=== PATIENT | female | born 1980 | race Caucasian/White ===

== ENCOUNTER 2016-08-15 15:49 | Outpatient (CLI) | payer OTHER ==
[~2016-08-15] VITALS: Ht 160 cm; Wt 66.7 kg
[~2016-08-15 15:49] MED LIST: ACET500C5 PO
[2016-08-15 15:57] VITALS: BP 119/58; RESP 16; Ht 160 cm; Wt 66.7 kg
--- NOTE | 2016-08-15 17:03 | RADRPT ---
PROCEDURE: US OB. CLINICAL INDICATION: Leaking amniotic fluid. TECHNIQUE: Multiple sonographic images of the uterus were obtained. In addition, transva ginal sonography of the cervix was performed. The images were reviewed on a PACS workstation. COMPARISON: No prior studies are available for comparison. FINDINGS: There is a single live intrauterine gestation. heart rate is 154 beats per minute. Measurements were made in order to determine age. The results are as follows: BPD = 4.97 cm. HC = 19.05 cm. AC = 16.11 cm. FL = 3.53 cm. Estimated weight is 406 +/- 61 grams. LMP growth percentile is 47 %. Menstrual age by ultrasound dates is 21 weeks 1 day. The estimated date of delivery is 12/25/2016. Maximum vertical pocket of amniotic fluid is 5.7 cm. Transvaginal cervical length is 3.9 cm. Position is cephalic and placenta is anterior grade 1. There is no evidence for an abruption or plac enta previa. IMPRESSION: 1. Single live intrauterine gestation of 21 weeks 1 day menstrual age by ultrasound dates. 2. The estimated date of delivery is 12/25/2016. 3. Maximum vertical pocket of amniotic fluid is 5.7 cm. 4. Cervical length is 3.9 cm. RPTAT: QQ .Sarmad Costa MD, Date Time Electronically viewed and signed by .Sarmad Costa MD, on 08/15/2016 17:02 .R/
--- NOTE | 2016-08-15 17:40 | HP ---
Date/Time of Note Date/Time of Note DATE: 08/15/16 TIME: 17:38 OB - History Hx of Present Free Text/Dictation 35 yo @20+wks GA with Twin pregancy with cc of leaking : 3 Para: 1 Care: Good Care Obstetrical Complications: None Medical Complications: None Past Family/Social History * Past Medical, Surgical, Family and Obstetric Histories reviewed from chart. OB Admission Exam Vital Signs Vital Signs Vital Signs Date Time Temp Pulse Resp B/P Pulse Ox O2 Delivery O2 Flow Rate FiO2 08/15/16 15:57 98.9 16 119/58 Physical Exam Abdomen: WNL Extremities: Normal Membranes: Ruptured OB Assessment/Plan Reason for admission: observation Plan: Expectant Management Other plan: Prenatalogy consult Neonatalogy consult IV hydration Patient is considering to leave the Hospital AMA due to personal problems .risks extensively discussed with patient SAPPHIRE CABRERA M.D. Aug 15, 2016 17:40
== END 2016-08-15 17:45 | disposition home or self-care (01) ==
LOC: OBT 15:49 → L-D 15:52 → OBT 17:45
PROVIDERS: ATTEND Obstetrics & Gynecology
DX: O26.893 Other specified pregnancy related conditions, third trimester (principal); O30.002 Twin pregnancy, unspecified number of placenta and unspecified number of amniotic sacs, second trimester; O09.522 Supervision of elderly multigravida, second trimester; Z3A.20 20 weeks gestation of pregnancy
CPT/HCPCS: 76816; 76817; 84112; Z7500; G0463

== ENCOUNTER 2016-09-12 15:36 | Outpatient (CLI) | payer OTHER ==
[~2016-09-12] VITALS: Ht 157.5 cm; Wt 66.4 kg
[2016-09-12 15:58] VITALS: BP 114/57; PULSE 85; RESP 17
--- NOTE | 2016-09-12 17:16 | RADRPT ---
PROCEDURE: US OB. CLINICAL INDICATION: Decreased motion. TECHNIQUE: Multiple sonographic images of the uterus were obtained. The images were revi ewed on a PACS workstation. COMPARISON: No prior studies are available for comparison. FINDINGS: There is a single live intrauterine gestation. heart rate is 154 beats per minute. Measurements were made in order to determine age. The results are as follows: BPD = 6.28 cm. HC = 23.47 cm. AC = 20.55 cm. FL = 4.93 cm. Estimated weight is 844 +/- 127 grams. LMP growth percentile is 66 %. Menstrual age by ultrasound dates is 25 weeks 5 days. Maximum vertical pocket of amniotic fluid is 7 cm. The estimated date of delivery is 12/21/2016. Position is breech and placenta is anterior grade 1. There is no evidence for an abruption or placen ta previa. IMPRESSION: 1. Single live intrauterine gestation of 25 weeks 5 days menstrual age by ultrasound dates. 2. The estimated date of delivery is 12/21/2016. RPTAT: QQ .Sarmad Costa MD, MD Date Time Electronically viewed and signed by .Sarmad Costa MD, on 09/12/2016 17:16 .R/
--- NOTE | 2016-09-12 18:06 | TRIAGE ---
OB Triage Datetime Report Generated by CPN: 09/12/2016 18:06 Datetime: 09/12/2016 17:53 Labor Evaluation Frequency: 0 Monitor Mode: External Pattern: Normal: <= 5 Contractions in 10 Minutes Resting Tone [place]: Relaxed Heart Rate FHR Baseline Rate: 145 Monitor Mode: External US FHR Baseline Changes: No Baseline Change Variability: Moderate 6-25 bpm Accelerations: 15X15 Decelerations: Variable Category: Category I Comments: NORMAL FOR GESTATIONAL AGE Datetime: 09/12/2016 15:56 Time of Arrival: 09/12/2016 15:32 EGA: 25.1 Arrived By: Wheelchair Arrived From: Emergency Dept Chief Complaint: NO MOVEMENT x2DAYS Movement: Absent Contractions: Denies/Absent Rupture of Membranes: Denies Vaginal Bleeding: None Vaginal Discharge: Denies Recent Sexual Intercouse: Denies Abdominal Trauma: Not Applicable Patient Complaints: Other Time Provider Notified: 09/12/2016 16:06 Provider Notified: DR. AGUAYO Initial Plan: EFW, WONG, TOCO AND DOPPLER Datetime: 09/12/2016 15:55 Heart Rate FHR Baseline Rate: 155 Monitor Mode: Doppler Comments: FHT RANGE: 135BPM - 180BPM Datetime: 09/12/2016 15:51 Stage of : OB Triage Assessment Type: Triage Maternal Assessment Level of Consciousness: Fully Conscious Headache: Denies Blurred Vision: No Respiratory Effort: Unlabored; Regular Rhythm; Equal Expansion Breath Sounds, Left: Clear and Equal Breath Sounds, Right: Clear and Equal Nausea/Vomiting: Denies RUQ Epigastric Pain: Denies Lower Extremities Edema: None Degree: None Upper Extremities Edema: None Degree: None Facial Edema: None Temperature Route: Oral Fall Risk Assessment History of Falling: (0) No Secondary Diagnosis: (0) No Ambulatory Aid: (0) Bedrest/Nurse Assist IV Therapy: (0) No Gait: (0) Normal/Bedrest/Immobile Mental Status: (0) Oriented to Own Ability Fall Score: 0 Fall Risk Score Definition: No Risk: No action required Datetime: 08/15/2016 16:45 EGA: 21.1 Datetime: 08/15/2016 16:06 Stage of : OB Triage Time of Arrival: 08/15/2016 15:45 Arrived By: Wheelchair Arrived From: Home Chief Complaint: leaking this moring Movement: Present Rupture of Membranes: Unsure Vaginal Bleeding: None Vaginal Discharge: Present Recent Sexual Intercouse: Denies Abdominal Trauma: Not Applicable Patient Complaints: Other Time Provider Notified: 08/15/2016 16:15 Provider Notified: Dr. Vergara Initial Plan: ROM +, EFW, cervical length Maternal Assessment Level of Consciousness: Fully Conscious DTR's/Clonus: DTRs 2+; No Clonus Headache: Denies Blurred Vision: No Respiratory Effort: Unlabored; Regular Rhythm; Equal Expansion Breath Sounds, Left: Clear and Equal Breath Sounds, Right: Clear and Equal Nausea/Vomiting: Denies RUQ Epigastric Pain: Denies Degree: None Upper Extremities Edema: None Facial Edema: None Temperature Route: Oral Fall Risk Assessment History of Falling: (0) No Secondary Diagnosis: (0) No Ambulatory Aid: (0) Bedrest/Nurse Assist IV Therapy: (0) No Gait: (0) Normal/Bedrest/Immobile Mental Status: (0) Oriented to Own Ability Fall Score: 0 Fall Risk Score Definition: No Risk: No action required Monitor Mode: External Monitor Mode: Doppler (Annotations: 145-160) Pain Assessment Pain Scale: 0 Pain Presence: None/Denies Pain Type: N/A
== END 2016-09-12 17:59 | disposition home or self-care (01) ==
LOC: OBT 15:36 → L-D 15:37 → OBT 17:59
PROVIDERS: ATTEND Obstetrics & Gynecology
DX: O36.8120 Decreased fetal movements, second trimester, not applicable or unspecified (principal); Z3A.25 25 weeks gestation of pregnancy
CPT/HCPCS: 76815; Z7500; G0463